=== PATIENT | female | born 1955 ===

== ENCOUNTER → 2018-11-21 10:02 | Outpatient (CLI) | payer OTHER | END | disposition home or self-care (01) | LOC: LAB 10:02 | DX: D12.8 Benign neoplasm of rectum (principal); C7A.026 Malignant carcinoid tumor of the rectum; Z01.812 Encounter for preprocedural laboratory examination; D69.8 Other specified hemorrhagic conditions ==

== ENCOUNTER 2018-11-23 07:08 | Day surgery (SDC) | payer OTHER | END 2018-11-23 15:40 | disposition home or self-care (01) | LOC: AMB-ENDOS 07:08 | DX: K64.1 Second degree hemorrhoids (principal) ==